=== PATIENT | female | born 1990 | race Hispanic/Latino ===

== ENCOUNTER 2018-02-09 10:52 | Emergency (ER) | payer SELFPAY ==
[2018-02-09 11:18] LABS: Bilirubin Negative (Negative); Blood, Urine Negative (Negative); Clarity Clear (Clear); Glucose, Urine (Dipstick) Negative (Negative); Leukocyte Negative (Negative); Nitrite Negative (Negative); Protein, Urine (Dipstick) Negative (Neg-Trace); Urobilinogen 0.2 mg/dL (0.2-1.0); pH, Urine 6.5 (5.0-9.0)
[2018-02-09 12:01] LABS: Pregu Control Background? CLEAR/WHITE (CLR/WHITE); Pregu Control Bar Appear? YES (CONTROL BAR)
[2018-02-09 12:02] LABS: Pregnancy Test - Urine (BHCG) Negative (Negative)
--- NOTE | 2018-02-09 13:54 | ULT ---
PELVIC ULTRASOUND WITH DOPPLER: (Transabdominal, transvaginal, Wei scale, color flow, and spectral Doppler) Date: 02/09/18 HISTORY: 27-year-old female with sudden onset lower abdominal pain. FINDINGS: The uterus measures 9.8 x 4.7 x 5.6 cm without mass. A small amount of fluid is seen in the endometri al cavity. The endometrium measures 18.0 mm in thickness. The right ovary measures 2.2 x 1.5 x 2.5 cm. The left ovary measures 3.2 x 2.5 x 3.4 cm. A 2.0 cm rig ht ovarian cyst is present. Flow is demonstrated to both ovaries. There are nabothian cysts in the ce rvix. Small amount of free fluid is seen in the cul-de-sac. IMPRESSION: 1. Small amount of fluid in the endometrial cavity and the cul-de-sac. 2. 2.0 cm right ovarian cyst. POS: [facility]
== END 2018-02-09 14:15 | disposition left against medical advice (07) ==
LOC: SCSER 10:52
DX: R10.30 Lower abdominal pain, unspecified (principal); F17.210 Nicotine dependence, cigarettes, uncomplicated
CPT/HCPCS: 76856; 81003; 81025

== ENCOUNTER 2018-02-09 16:45 | Emergency (ER) | payer SELFPAY ==
[2018-02-09] MEDS ORDERED: cefTRIAXone\\ROCEPHIN 250 MG VIAL ONE (17:26)
[2018-02-09] MEDS ORDERED: Lidocaine 1% MPF 2 ML VIAL ONE (17:26)
[2018-02-11 22:43] LABS: Chlamydia by PCR DETECTED (NotDetected); GC by PCR Not Detected (NotDetected)
== END 2018-02-09 17:49 | disposition home or self-care (01) ==
LOC: SCSER 16:45
DX: R10.30 Lower abdominal pain, unspecified (principal); R10.2 Pelvic and perineal pain; F17.210 Nicotine dependence, cigarettes, uncomplicated
CPT/HCPCS: 87480; 87491; 87510; 87591; 87660; 96372; J0696

== ENCOUNTER 2021-11-25 11:05 | Emergency (ER) | payer SELFPAY | END 2021-11-25 12:10 | disposition home or self-care (01) | LOC: ERS 11:05 | DX: J30.9 Allergic rhinitis, unspecified (principal); F17.210 Nicotine dependence, cigarettes, uncomplicated | CPT/HCPCS: 99283 ==